=== PATIENT | female | born 1975 | race Caucasian/White ===

== ENCOUNTER 2018-11-08 11:58 | Emergency (ER) | payer OTHER ==
[2018-11-08] MEDS ORDERED: FLUORESCEIN SODIUM 0.6 MG/WRAP ONE (12:33)
[2018-11-08] MEDS ORDERED: TETRACAINE HCL 0.5% 2ML OPTH ONE (12:33)
--- NOTE | 2018-11-08 12:36 | ER ---
Nurse's Notes [facility] Name: Verna Elmore Age: 43 yrs Sex: Female : 1975 Arrival Date: 11/08/2018 Time: 12:01 Bed 26 Private MD: None, None Diagnosis: Injury of conjunctiva and corneal abrasion without foreign body Presentation: 11/08 12:29 Presenting complaint: Patient states: She was getting ready and she accidentally aj1 scratched her right eye with her fingernail. Reports pain and burning to right eye. Transition of care: patient was not received from another setting of care. Mechanism of Injury: scratched her eye with her fingernail. The patient denies any loss of vision. Onset of symptoms was November 08, 2018. Risk Assessment: Do you want to hurt yourself or someone else? Patient reports no desire to harm self or others. Initial Sepsis Screen: Does the patient meet any 2 criteria? No. Patient's initial sepsis screen is negative. Does the patient have a suspected source of infection? No. Patient's initial sepsis screen is negative. Care prior to arrival: None. 12:29 Method Of Arrival: Ambulatory aj 12:29 Acuity: EDDIE 4 aj1 Triage Assessment: 12:31 General: Appears in no apparent distress. uncomfortable, Behavior is cooperative, aj1 anxious, restless. Pain: Complains of pain in right eye Pain currently is 10 out of 10 on a pain scale. EENT: Eyes are tearing on right lower eyelid Sclera/Cornea are reddened in outer aspect of conjuctiva of right eye, iris of right eye and inner aspect of conjuctiva of right eye. MOLD HOISTER: 12:31 LMP 11/08/2018 aj1 Historical: - Allergies: 12:31 PENICILLINS; aj1 12:31 Sulfa (Sulfonamide Antibiotics); aj1 - Home Meds: 12:31 None [Active]; aj1 - PMHx: 12:31 None; aj1 - PSHx: 12:31 None; aj1 - Immunization history:: Flu vaccine is not up to date. - Social history:: Smoking status: Patient/guardian denies using tobacco. - Ebola Screening: : Patient denies travel to an Ebola-affected area in the 21 days before illness onset. Screenin:32 Abuse screen: Denies threats or abuse. Denies injuries from another. Nutritional aj1 screening: No deficits noted. Tuberculosis screening: No symptoms or risk factors identified. 13:45 Fall Risk None identified. aj1 Assessment: 12:32 General: Appears in no apparent distress. uncomfortable, Behavior is cooperative, aj1 anxious, restless. Pain: Complains of pain in right eye Pain currently is 10 out of 10 on a pain scale. Neuro: Level of Consciousness is awake, alert, obeys commands. Cardiovascular: Patient's skin is warm and dry. Respiratory: Airway is patent Respiratory effort is even, unlabored, Respiratory pattern is regular, symmetrical. GI: No signs and/or symptoms were reported involving the gastrointestinal system. : No signs and/or symptoms were reported regarding the genitourinary system. EENT: Eyes are tearing on right lower eyelid Sclera/Cornea are reddened in outer aspect of conjuctiva of right eye and inner aspect of conjuctiva of right eye. Derm: No signs and/or symptoms reported regarding the dermatologic system. Skin is pink, warm \T\ dry. normal. Musculoskeletal: No signs and/or symptoms reported regarding the musculoskeletal system. Circulation, motion, and sensation intact. 13:43 Reassessment: Patient appears in no apparent distress at this time. No changes from aj1 previously documented assessment. Patient and/or family updated on plan of care and expected duration. Pain level reassessed. Patient is alert, oriented x 3, equal unlabored respirations, skin warm/dry/pink. Vital Signs: 12:31 BP 135 / 95; Pulse 78; Resp 18; Pulse Ox 100% on R/A; Weight 65.77 kg (R); Height 5 ft. aj1 2 in. (157.48 cm) (R); Pain 10/10; 12:31 Body Mass Index 26.52 (65.77 kg, 157.48 cm) aj1 ED Course: 12:01 Patient arrived in ED. dl4 12:01 None, None is Private Physician. dl4 12:19 [facility]C [facility] snw 12:19 Matheus Franco MD is Attending Physician. snw 12:28 Sudha Wagner RN is Primary Nurse. aj1 12:30 Triage completed. aj1 12:31 Arm band placed on Patient placed in an exam room. aj1 12:32 Patient has correct armband on for positive identification. aj1 12:32 No provider procedures requiring assistance completed. aj1 12:35 Jose Angel Villarreal MD is Referral Physician. snw 13:44 Patient did not have IV access during this emergency room visit. 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 Exp: kr2 12/22/2020. Lot #: [id number]. } Route: IM; Site: left deltoid; 13:43 Follow up: Response: No adverse reaction aj1 13:03 Drug: [place] 5 mg-325 mg 1 tabs Route: PO; kr2 13:43 Follow up: Response: No adverse reaction aj1 13:03 Drug: Tobrex 0.3 % 1 application Route: Ophthalmic; Site: right eye; kr2 13:43 Follow up: Response: No adverse reaction aj1 Outcome: 12:36 Discharge ordered by MD. snw 13:44 Discharged to home ambulatory. aj1 13:44 Condition: good 13:44 Discharge instructions given to patient, Instructed on discharge instructions, follow up and referral plans. medication usage, Demonstrated understanding of instructions, follow-up care, medications, Prescriptions given X 1. 13:45 Patient left the ED. aj1 Signatures: Sudha Wagner, RN RN aj1 Yuli Hauser, PROCEDURE RN-C PROCEDURE RN-Csnw Ema Julien RN RN kr2 Bang Avilez dl4
--- NOTE | 2018-11-08 12:36 | EDPHYS ---
Physician Documentation [facility] Name: Verna Elmore Age: 43 yrs Sex: Female : 1975 Arrival Date: 11/08/2018 Time: 12:01 Bed 26 Private MD: None, None ED Physician Matheus Franco HPI: 11/08 12:43 This 43 yrs old Female presents to ER via Ambulatory with complaints of Eye snw Injury. 12:43 The patient is experiencing pain, tearing, The patient sustained an abrasion, a snw scratch, to the right eye, caused by fingernail. Onset: The symptoms/episode began/occurred suddenly, just prior to arrival. Duration: the symptoms are continuous. Associated signs and symptoms: Pertinent positives: None. Severity of symptoms: At their worst the symptoms were moderate severe. The patient has not experienced similar symptoms in the past. The patient has not recently seen a physician. OUTREACH LIAISON: 12:31 LMP 11/08/2018 aj1 Historical: - Allergies: 12:31 PENICILLINS; aj1 12:31 Sulfa (Sulfonamide Antibiotics); aj1 - Home Meds: 12:31 None [Active]; aj1 - PMHx: 12:31 None; aj1 - PSHx: 12:31 None; aj1 - Immunization history:: Flu vaccine is not up to date. - Social history:: Smoking status: Patient/guardian denies using tobacco. - Ebola Screening: : Patient denies travel to an Ebola-affected area in the 21 days before illness onset. ROS: 12:41 Constitutional: Negative for fever, chills, and weight loss, ENT: Negative for injury, snw pain, and discharge, Neck: Negative for injury, pain, and swelling, Cardiovascular: Negative for chest pain, palpitations, and edema, Respiratory: Negative for shortness of breath, cough, wheezing, and pleuritic chest pain, Abdomen/GI: Negative for abdominal pain, nausea, vomiting, diarrhea, and constipation, Back: Negative for injury and pain, : Negative for injury, bleeding, discharge, and swelling, MS/Extremity: Negative for injury and deformity, Skin: Negative for injury, rash, and discoloration, Neuro: Negative for headache, weakness, numbness, tingling, and seizure. 12:41 Eyes: Positive for foreign body sensation, pain, tearing, of the outer aspect of conjuctiva of right eye, iris of right eye and inner aspect of conjuctiva of right eye. Exam: 12:40 Constitutional: This is a well developed, well nourished patient who is awake, alert, snw and in no acute distress. Head/Face: Normocephalic, atraumatic. ENT: Nares patent. No nasal discharge, no septal abnormalities noted. Tympanic membranes are normal and external auditory canals are clear. Oropharynx with no redness, swelling, or masses, exudates, or evidence of obstruction, uvula midline. Mucous membranes moist. Neck: Trachea midline, no thyromegaly or masses palpated, and no cervical lymphadenopathy. Supple, full range of motion without nuchal rigidity, or vertebral point tenderness. No Meningismus. Chest/axilla: Normal chest wall appearance and motion. Nontender with no deformity. No lesions are appreciated. Cardiovascular: Regular rate and rhythm with a normal S1 and S2. No gallops, murmurs, or rubs. Normal PMI, no JVD. No pulse deficits. Respiratory: Lungs have equal breath sounds bilaterally, clear to auscultation and percussion. No rales, rhonchi or wheezes noted. No increased work of breathing, no retractions or nasal flaring. Abdomen/GI: Soft, non-tender, with normal bowel sounds. No distension or tympany. No guarding or rebound. No evidence of tenderness throughout. Back: No spinal tenderness. No costovertebral tenderness. Full range of motion. Skin: Warm, dry with normal turgor. Normal color with no rashes, no lesions, and no evidence of cellulitis. MS/ Extremity: Pulses equal, no cyanosis. Neurovascular intact. Full, normal range of motion. Neuro: Awake and alert, GCS 15, oriented to person, place, time, and situation. Cranial nerves II-XII grossly intact. Motor strength 5/5 in all extremities. Sensory grossly intact. Cerebellar exam normal. Normal gait. 12:40 Eyes: Periorbital structures: appear normal, Pupils: no acute changes, Extraocular movements: no acute changes, Conjunctiva: tearing noted, in right eye, right . Corneas: abrasion, that is small, at 7 o'clock, a fluorescein strip employed to appreciate the findings, Sclera: no appreciated abnormality, Examination of the other eye reveals no obvious gross abnormality. Vital Signs: 12:31 BP 135 / 95; Pulse 78; Resp 18; Pulse Ox 100% on R/A; Weight 65.77 kg (R); Height 5 ft. aj1 2 in. (157.48 cm) (R); Pain 10/10; 12:31 Body Mass Index 26.52 (65.77 kg, 157.48 cm) aj1 MDM: 12:20 Patient medically screened. snw 12:42 Data reviewed: vital signs, nurses notes. Data interpreted: Pulse oximetry: on room air snw is 100 %. Interpretation: normal. Counseling: I had a detailed discussion with the patient and/or guardian regarding: the historical points, exam findings, and any diagnostic results supporting the discharge/admit diagnosis, the presence of at least one elevated blood pressure reading (>120/80) during this emergency department visit, the need for outpatient follow up, to return to the emergency department if symptoms worsen or persist or if there are any questions or concerns that arise at home. Special discussion: I have referred the patient to see his PCP for further evaluation of high blood pressure. Based on the history and exam findings, there is no indication for further emergent testing or inpatient evaluation. I discussed with the patient/guardian the need to see the opthamologist for further evaluation of the symptoms. 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 Exp: kr2 12/22/2020. Lot #: [id number]. } Route: IM; Site: left deltoid; 13:43 Follow up: Response: No adverse reaction aj1 13:03 Drug: [place] 5 mg-325 mg 1 tabs Route: PO; kr2 13:43 Follow up: Response: No adverse reaction aj1 13:03 Drug: Tobrex 0.3 % 1 application Route: Ophthalmic; Site: right eye; kr2 13:43 Follow up: Response: No adverse reaction aj1 Disposition: 16:03 Co-signature as Attending Physician, Matheus Franco MD I agree with the assessment and kdr plan of care. Disposition: 11/08/18 12:36 Discharged to Home. Impression: Injury of conjunctiva and corneal abrasion without foreign body. - Condition is Stable. - Discharge Instructions: Corneal Abrasion, VIS, Tetanus, Diphtheria (Td) - CDC. - Prescriptions for Diclofenac Sodium 75 mg Oral Tablet Sustained Release - take 1 tablet by ORAL route 2 times per day; 30 tablet. - Work release form, Medication Reconciliation Form, Thank You Letter, Antibiotic Education, Prescription Opioid Use form. - Follow up: Jose Angel Villarreal MD; When: 1 - 2 days; Reason: Recheck today's complaints, Continuance of care. - Notes: Please use eye ointment 3 times daily x 7 days. Signatures: Sudha Wagner RN RN aj1 Matheus Franco MD MD [facility] Yuli Hauser, SHOE MAKER-C SHOE MAKER-Csnw Ema Julien RN RN kr2 Corrections: (The following items were deleted from the chart) 12:42 12:40 Eyes: Periorbital structures: appear normal, Pupils: no acute changes, snw Extraocular movements: no acute changes, Conjunctiva: tearing noted, in right eye, Corneas: abrasion, that is small, at 7 o'clock, a fluorescein strip employed to appreciate the findings, Sclera: no appreciated abnormality, snw 13:45 12:36 11/08/2018 12:36 Discharged to Home. Impression: Injury of conjunctiva and aj1 corneal abrasion without foreign body. Condition is Stable. Forms are Medication Reconciliation Form, Thank You Letter, Antibiotic Education, Prescription Opioid Use. Follow up: Jose Angel Villarreal; When: 1 - 2 days; Reason: Recheck today's complaints, Continuance of care. snw
[2018-11-08] MEDS ORDERED: HYDROCODONE/APAP 5/325 MG TAB ONE (13:07)
[2018-11-08] MEDS ORDERED: TOBRAMYCIN SULF 0.3% OPTH OINT ONE (13:07)
[2018-11-08] MEDS ORDERED: TETANUS & DIPHTHERIA TOX,ADULT 0.5 ML VIAL ONE (13:07)
== END 2018-11-08 13:45 | disposition home or self-care (01) ==
LOC: ER 11:58
DX: S05.01XA Injury of conjunctiva and corneal abrasion without foreign body, right eye, initial encounter (principal); W50.4XXA Accidental scratch by another person, initial encounter; Y92.009 Unspecified place in unspecified non-institutional (private) residence as the place of occurrence of the external cause; Z88.2 Allergy status to sulfonamides; Z88.0 Allergy status to penicillin; Z23 Encounter for immunization
CPT/HCPCS: 90714; 99283